=== PATIENT | male | born 1960 | race Caucasian/White ===

== ENCOUNTER 2021-08-16 10:13 | Inpatient (IN) | payer OTHER, SELFPAY ==
[2021-08-16] VITALS (11 sets, daily range): BP systolic 112–131; BP diastolic 57–72; PULSE 60–90; RESP 19–30; TEMP 36.4–36.8; O2SAT 90–100; BMI 25.6
--- NOTE | ~2021-08-16 | XR_ITS ---
EXAMINATION: XR ABDOMEN KUB CLINICAL INDICATION: Abdominal pain. COMPARISON: None TECHNIQUE: AP view of the abdomen. FINDINGS: The bowel gas pattern is normal with no evidence of ileus or obstruction. No unusual soft tissue calcifications are noted. The bones are unremarkable. Partially visualized airspace opacities in the lung bases. XR/XR KUB IMPRESSION: Nonobstructive bowel gas pattern.
--- NOTE | ~2021-08-16 | XR_ITS ---
EXAMINATION: XR CHEST CLINICAL INFORMATION: Fluid overload. Possible pneumonia. COMPARISON: None TECHNIQUE: Portable upright AP view of the chest was obtained. FINDINGS: There are patchy bilateral airspace opacities at the right apex and right infrahilar region. There is bibasilar disc atelectasis. Even distribution vascularity suggesting elevated pulmonary venous pressures. The heart is normal in size. There is no overt effusion. The bony structures are unremarkable. XR/XR chest 1V IMPRESSION: 1. Patchy airspace opacities right apex and right infrahilar region. 2. Bibasilar disc atelectasis. 3. Even distribution pulmonary vascularity suggesting elevated pulmonary venous pressures. Heart size normal.
--- NOTE | ~2021-08-16 | XR_ITS ---
EXAMINATION: XR CHEST CLINICAL INFORMATION: Low sats. COMPARISON: Chest 08/16/2021 TECHNIQUE: Frontal view of the chest was obtained. FINDINGS: The lungs are well-expanded with moderate patchy airspace opacity right middle lobe increased from 08/16/2021 exam. Similar patchy opacities seen in the left lingula, right upper lobe are worse as well. Heart size and pulmonary vascularity is normal. No gross bony abnormality.. XR/XR chest 1V IMPRESSION: Worsening bilateral infiltrates.
[2021-08-16] MEDS: Albuterol/Iprat 2.5/0.5MG 3 ML AMPUL.NEB INHALE ×4 (11:24→23:23)
[2021-08-16] MEDS: Furosemide 20 MG/2 ML VIAL IVPUSH (11:26)
[2021-08-16 11:29] LABS: Hematocrit 32.1 % (42.0-52.0); Hemoglobin 10.8 g/dl (14.0-18.0); Mean Corpuscular HGB Conc 33.6 g/dl (31.0-36.0); Mean Corpuscular Hemoglobin 36.4 pg (27.0-33.0); Mean Corpuscular Volume 108.1 fL (80.0-98.0); Red Blood Count 2.97 X10*6/uL (4.60-5.80); Red Cell Distribution Width 17.2 % (11.0-16.0)
[2021-08-16 11:30] LABS: WBC ABN SCTR FOR CBC 1
[2021-08-16 11:41] LABS: INTERNATIONAL NORM RATIO 1.4 (0.9-1.1); Prothrombin Time 15.7 SEC (9.9-13.0)
[2021-08-16 11:42] LABS: Lactic Acid 1.4 mmol/L (0.5-2.0)
[2021-08-16 11:44] LABS: Partial Thromboplastin Time 29.6 SEC (24.1-38.0)
--- NOTE | 2021-08-16 11:45 | PC.NURSE ---
pt brought to ed via ambulance from [facility] with c/o increased abdominal pain and swelling. pt has history of Cirrhosis with ascites. he also has history of COPD and is on 2L N/C at baseline. Pt placed on 4L N/C by ems due to low sat of 95-96% on 2L. On arrival to the ed pt put on 4L non - rebreather satting at 90-92%. pt noted to be mouth breathing, respiratory therapist at the bedside.
--- NOTE | 2021-08-16 11:46 | ED.GENADULT ---
HPI - General Adult General Chief complaint: Abdominal Pain <Ruddy Saldaña MD - Last Filed: 08/16/21 12:04> Stated complaint: abd pain/ ascites <Ruddy Saldaña MD - Last Filed: 08/16/21 12:04> Time Seen by Provider: 08/16/21 10:46 <Ruddy Saldaña MD - Last Filed: 08/16/21 12:04> Source: patient and EMS <CHINYERE Paulino - Last Filed: 08/16/21 17:06> Mode of arrival: ambulatory <CHINYERE Paulino - Last Filed: 08/16/21 17:06> Limitations: no limitations <CHINYERE Paulino - Last Filed: 08/16/21 17:06> History of Present Illness HPI narrative: Patient with past medical history of COPD, alcoholic liver cirrhosis with ascites, and chronic hypoxia presents to ED for shortness of breath, cough, and increased swelling of abdomen and legs for the past couple days. Patient denies any fever or chills <CHINYERE Paulino - Last Filed: 08/16/21 17:06> Related Data Home medications: Home Medications Medication Instructions Recorded Confirmed albuterol sulfate 90 mcg/actuation 2 puff INHALATION Q4H PRN 08/16/21 08/16/21 aerosol inhaler azithromycin 250 mg tablet 250 mg PO MOWEFR 08/16/21 08/16/21 fluticasone furoate 200 1 inh INHALATION DAILY 08/16/21 08/16/21 mcg-vilanterol 25 mcg/dose inhalation powder (Breo Ellipta) guaifenesin 600 mg tablet, 600 mg PO BID 08/16/21 08/16/21 extended release 12 hr (Mucinex) ipratropium 0.5 mg-albuterol 3 mg 3 ml INHALATION QID 08/16/21 08/16/21 (2.5 mg base)/3 mL nebulization soln morphine 4 mg/mL intravenous 2 mg SUBLINGUAL Q2H PRN 08/16/21 08/16/21 solution multivitamin 1 tab PO DAILY 08/16/21 08/16/21 nadolol 20 mg tablet 40 mg PO DAILY 08/16/21 08/16/21 prednisone 20 mg tablet 20 mg PO DAILY 08/16/21 08/16/21 roflumilast 500 mcg tablet 500 mcg PO DAILY 08/16/21 08/16/21 (Daliresp) sertraline 50 mg tablet 50 mg PO DAILY 08/16/21 08/16/21 thiamine HCl (vitamin B1) 100 mg 100 mg PO DAILY 08/16/21 08/16/21 tablet umeclidinium 62.5 mcg/actuation 1 inh INHALATION DAILY 08/16/21 08/16/21 blister powder for inhalation (Incruse Ellipta) <Ruddy Saldaña MD - Last Filed: 08/16/21 12:04> Allergies/adverse reactions: Allergies Allergy/AdvReac Type Severity Reaction Status Date / Time No Known Allergies Allergy Verified 08/16/21 10:58 <Ruddy Saldaña MD - Last Filed: 08/16/21 12:04> Review of Systems Review of Systems: Yes all other systems are reviewed and are negative <CHINYERE Paulino - Last Filed: 08/16/21 17:06> Constitutional: Constitutional: Reports as per HPI and Reports no additional constitutional complaints <CHINYERE Paulino - Last Filed: 08/16/21 17:06> Eyes: Eyes: Reports as per HPI and Reports no additional eye complaints <CHINYERE Paulino - Last Filed: 08/16/21 17:06> ENT: Reports system reviewed and no additional complaints, except as documented and Reports as per HPI <CHINYERE Paulino - Last Filed: 08/16/21 17:06> Cardiovascular: Cardiovascular: Reports as per HPI, Reports no additional cardiovascular complaints and Reports dyspnea <CHINYERE Paulino Last Filed: 08/16/21 17:06> Respiratory: Respiratory: Reports as per HPI, Reports no additional respiratory complaints, Reports cough and Reports dyspnea <CHINYERE Paulino Last Filed: 08/16/21 17:06> Gastrointestinal: Gastrointestinal: Reports as per HPI and Reports no additional gastrointestinal complaints <CHINYERE Paulino Last Filed: 08/16/21 17:06> Comments: Abdominal distension <CHINYERE Paulino Last Filed: 08/16/21 17:06> Genitourinary: Genitourinary: Reports no additional male genitourinary complaints and Reports as per HPI <CHINYERE Paulino - Last Filed: 08/16/21 17:06> Musculoskeletal: Musculoskeletal: Reports no additional musculoskeletal complaints and Reports as per HPI <CHINYERE Paulino - Last Filed: 08/16/21 17:06> Neurologic: Reports system reviewed and no additional complaints, except as documented and Reports as per HPI <CHINYERE Paulino - Last Filed: 08/16/21 17:06> Psychiatric: Psychiatric: Reports no additional psychiatric complaints and Reports as per HPI <CHINYERE Paulino - Last Filed: 08/16/21 17:06> Endocrine: Endocrine: Reports no additional endocrine complaints and Reports as per HPI <CHINYERE Paulino - Last Filed: 08/16/21 17:06> [facility] Social History Social History: Social History Advance Directives: No Advance Directives Information Provided: No <Ruddy Saldaña MD - Last Filed: 08/16/21 12:04> Physical Exam Vital Signs: Vital Signs: Last Vital Signs Temp 98.0 F 08/16/21 16:00 Pulse 64 08/16/21 16:00 Resp 19 08/16/21 16:00 BP 114/57 L 08/16/21 16:00 Pulse Ox 93 08/16/21 16:00 Oxygen Flow Rate 10 08/16/21 10:24 Body Mass Index 25.6 <Ruddy Saldaña MD - Last Filed: 08/16/21 12:04> Vital Signs: Last Vital Signs Temp 98.0 F 08/16/21 16:00 Pulse 64 08/16/21 16:00 Resp 19 08/16/21 16:00 BP 114/57 L 08/16/21 16:00 Pulse Ox 93 08/16/21 16:00 Oxygen Flow Rate 10 08/16/21 10:24 Body Mass Index 25.6 <CHINYERE Paulino - Last Filed: 08/16/21 17:06> Const: General: cooperative, healthy appearing, comfortable, alert, awake, Physically active and acute distress <CHINYERE Paulino - Last Filed: 08/16/21 17:06> Orientation/consciousness: patient oriented x3 <CHINYERE Paulino - Last Filed: 08/16/21 17:06> HENMT: Head: Yes normal to inspection, Yes No palpable skull fracture present, Yes normocephalic, Yes atraumatic and No abrasion <Phani Alvarado CHINYERE Last Filed: 08/16/21 17:06> Eyes: General: appearance normal, both eyes and all related structures <CHINYERE Paulino Last Filed: 08/16/21 17:06> Neck: Neck: Yes normal visual inspection, Yes full ROM, Yes no lymphadenopathy, Yes no meningeal signs, Yes trachea midline, Yes supple, No anterior neck swelling and No tender <Phanikillian Alvarado CHINYERE Last Filed: 08/16/21 17:06> Chest: Chest palpation & inspection: normal inspection of the chest and normal palpation of entire chest wall <Phani Alvarado CHINYERE Last Filed: 08/16/21 17:06> Resp: Effort & Inspection: normal respiratory effort and able to speak in complete sentences <CHINYERE Paulino Filed: 08/16/21 17:06> Auscultation: rhonchi (Diffuse) and wheezes (Diffuse) <Phani Christiano CHINYERE Filed: 08/16/21 17:06> Cardio: Jugular venous distension: no JVD <CHINYERE Paulino Last Filed: 08/16/21 17:06> Heart sounds: S1 normal heart sound present and S2 normal heart sound present <CHINYERE Paulino Last Filed: 08/16/21 17:06> GI: Inspection: Yes normal to inspection and Yes distended (telangtescia) <Phani Alvarado CHINYERE Last Filed: 08/16/21 17:06> Palpation (GI): Soft to palpation, not firm, nontender, no guarding and not rigid <Phani Alvarado CHINYERE Last Filed: 08/16/21 17:06> : General: No CVA tenderness and Yes no CVA tenderness <Phanikillian Alvarado CHINYERE Valderrama Last Filed: 08/16/21 17:06> Back/Spine/Pelvis: Back: no CVA tenderness, No CVA tenderness and No back tenderness <Phani Christiano CHINYERE Valderrama Last Filed: 08/16/21 17:06> Skin: General skin exam: no rashes or lesions noted and elasticity normal <Phanikillian Alvarado CHINYERE Last Filed: 08/16/21 17:06> Neuro: General: patient oriented x3, no meningeal signs and CN's II-XI intact bilaterally <CHINYERE Paulino - Last Filed: 08/16/21 17:06> Cranial nerves: Yes CN's II-XII intact bilaterally <CHINYERE Paulino - Last Filed: 08/16/21 17:06> Extrem: Other: Bilateral lower extremity swelling with pitting edema <CHINYERE Paulino - Last Filed: 08/16/21 17:06> General: Yes normal to inspection and Yes full ROM <CHINYERE Paulino - Last Filed: 08/16/21 17:06> Psych: Appearance: grossly normal, well kempt and not disheveled <CHINYERE Paulino - Last Filed: 08/16/21 17:06> Course Course Course Narrative: Presentation indicates possible infectious pneumonia cause of hypoxia with patient coughing up yellow phlegm with rhonchi and wheezing but due to abdominal swelling and leg swelling may be fluid overload due to poor liver function or worsening ascites/cirrhosis. Will order Lasix and albuterol inhaler. Bedside ultrasound shows good pocket for potential paracentesis and right side of abdomen. <CHINYERE Paulino - Last Filed: 08/16/21 17:06> Reevaluation(s) Reevaluation #1: Discussed and saw patient with CHINYERE Alvarado, patient with 28 bands, right sided infiltrate and worsening ascites will admit <Ruddy Saldaña MD - Last Filed: 08/16/21 12:04> Time: 12:04 <Ruddy Saldaña MD - Last Filed: 08/16/21 12:04> Reevaluation #2: Patient placed on non-rebreather and air some mask. Chest x-ray shows pneumonia. Patient started on antibiotics. Discussed with Dr. Saldaña who states presently no indication for paracentesis. cause of hypoxia is pneumonia. I agree with the plan. Patient added with Solu-Medrol magnesium. ABG negative for retained CO2. Case discussed with hospitalist who agreed patient should be admitted for COPD exacerbation/pneumonia. <CHINYERE Paulino - Last Filed: 08/16/21 17:06> Time: 14:31 <CHINYERE Paulino Last Filed: 08/16/21 17:06> Medical Decision Making Lab Data Result diagrams: : 08/16/21 11:12 08/16/21 11:12 <Ruddy Saldaña MD - Last Filed: 08/16/21 12:04> Labs: Lab Results 08/16/21 08/16/21 08/16/21 Range/Units 11:11 11:12 11:12 WBC 3.8 L (4.8-10.8) X10*3/uL RBC 2.97 L (4.60-5.80) X10*6/uL Hgb 10.8 L (14.0-18.0) g/dl Hct 32.1 L (42.0-52.0) % MCV 108.1 H (80.0-98.0) fL MCH 36.4 H (27.0-33.0) pg MCHC 33.6 (31.0-36.0) g/dl RDW 17.2 H (11.0-16.0) % Plt Count 99 L (160-400) X10*3/uL MPV 10.9 (9.4-12.4) fL Immature Gran % (Auto) Cancelled Neut % (Auto) Cancelled Lymph % (Auto) Cancelled [place] % (Auto) Cancelled Eos % (Auto) Cancelled Baso % (Auto) Cancelled Lymph # (Auto) Cancelled [place] # (Auto) Cancelled Eos # (Auto) Cancelled Baso # (Auto) Cancelled Abs Immat Gran (auto) Cancelled Absolute Neuts (auto) Cancelled Absolute Nucleated RBC 0.000 (0.0-0.012) X10*3/uL Nucleated RBC % (auto) 0.0 (0.0-0.2) /100WBC Neutrophils % (Manual) 50 (45-73) % Band Neutrophils % 28 H (3-5) % Lymphocytes % (Manual) 10 L (20-40) % Monocytes % (Manual) 10 (2-11) % Eosinophils % (Manual) 1 (0-4) % Metamyelocytes % 1 % Abs Neuts (Manual) 3.0 (2.0-8.3) X10*3/uL Lymphocytes # (Manual) 0.4 L (1.2-4.9) X10*3/uL Monocytes # (Manual) 0.4 (0.1-1.2) X10*3/uL Toxic Vacuolation PRESENT Platelet Estimate NORMAL (NORMAL) Plt Morphology Comment NORMAL RBC Morphology NOTED Macrocytosis 1+ (5-14) /OIF PT 15.7 H (9.9-13.0) SEC INR 1.4 H (0.9-1.1) APTT 29.6 (24.1-38.0) SEC O2 Saturation % ABG pH at Pt Temp (7.35-7.45) ABG pH (Temp Correct) (7.35-7.45) ABG pCO2 at Pt Temp (32-45) mmHg ABG pCO2 (Temp Corrct (32-45) mmHg ABG pO2 at Pt Temp (83-108) mmHg ABG pO2 (Temp Correct (83-108) ABG HCO3 (22-26) mmol/L ABG Base Excess (Actual) mmol/L Sodium 133 L (135-145) mmol/L Potassium 4.8 (3.3-5.1) mmol/L Chloride 97 (96-108) mmol/L Carbon Dioxide 31 H (22-29) mmol/L Anion Gap 10 L (12-20) BUN 22 H (9-16) mg/dL Creatinine 0.56 (0.5-1.4) mg/dL Estim Creat Clear Calc 123.4 Estimated GFR > 60 POC Glucose (60-115) mg/dL Random Glucose 96 (60-115) mg/dL Lactic Acid (0.5-2.0) mmol/L Calcium 9.7 (8.4-10.2) mg/dL Total Bilirubin 2.5 H (0.0-1.0) mg/dL AST 47 H (5-37) U/L ALT 56 H (0-40) U/L Alkaline Phosphatase 162 H (39-117) U/L Troponin I High Sens (<3.5-35.0) ng/L B-Natriuretic Peptide (<100) pg/mL Total Protein 4.9 L (6.5-8.0) g/dL Albumin 2.6 L (3.5-5.0) g/dL Lipase 30 (8-78) U/L Influenza Type A (PCR) (Negative) Influenza Type B (PCR) (Negative) RSV RNA Qual (PCR) (Negative) SARS-CoV-2 RNA (RT-PCR) (Negative) 08/16/21 08/16/21 08/16/21 Range/Units 11:12 11:12 11:44 WBC (4.8-10.8) X10*3/uL RBC (4.60-5.80) X10*6/uL Hgb (14.0-18.0) g/dl Hct (42.0-52.0) % MCV (80.0-98.0) fL MCH (27.0-33.0) pg MCHC (31.0-36.0) g/dl RDW (11.0-16.0) % Plt Count (160-400) X10*3/uL MPV (9.4-12.4) fL Immature Gran % (Auto) Neut % (Auto) Lymph % (Auto) [place] % (Auto) Eos % (Auto) Baso % (Auto) Lymph # (Auto) [place] # (Auto) Eos # (Auto) Baso # (Auto) Abs Immat Gran (auto) Absolute Neuts (auto) Absolute Nucleated RBC (0.0-0.012) X10*3/uL Nucleated RBC % (auto) (0.0-0.2) /100WBC Neutrophils % (Manual) (45-73) % Band Neutrophils % (3-5) % Lymphocytes % (Manual) (20-40) % Monocytes % (Manual) (2-11) % Eosinophils % (Manual) (0-4) % Metamyelocytes % % Abs Neuts (Manual) (2.0-8.3) X10*3/uL Lymphocytes # (Manual) (1.2-4.9) X10*3/uL Monocytes # (Manual) (0.1-1.2) X10*3/uL Toxic Vacuolation Platelet Estimate (NORMAL) Plt Morphology Comment RBC Morphology Macrocytosis /OIF PT (9.9-13.0) SEC INR (0.9-1.1) APTT (24.1-38.0) SEC O2 Saturation % ABG pH at Pt Temp (7.35-7.45) ABG pH (Temp Correct) (7.35-7.45) ABG pCO2 at Pt Temp (32-45) mmHg ABG pCO2 (Temp Corrct (32-45) mmHg ABG pO2 at Pt Temp (83-108) mmHg ABG pO2 (Temp Correct (83-108) ABG HCO3 (22-26) mmol/L ABG Base Excess (Actual) mmol/L Sodium (135-145) mmol/L Potassium (3.3-5.1) mmol/L Chloride (96-108) mmol/L Carbon Dioxide (22-29) mmol/L Anion Gap (12-20) BUN (9-16) mg/dL Creatinine (0.5-1.4) mg/dL Estim Creat Clear Calc Estimated GFR POC Glucose 90 (60-115) mg/dL Random Glucose (60-115) mg/dL Lactic Acid 1.4 (0.5-2.0) mmol/L Calcium (8.4-10.2) mg/dL Total Bilirubin (0.0-1.0) mg/dL AST (5-37) U/L ALT (0-40) U/L Alkaline Phosphatase (39-117) U/L Troponin I High Sens 10.6 (<3.5-35.0) ng/L B-Natriuretic Peptide 59 (<100) pg/mL Total Protein (6.5-8.0) g/dL Albumin (3.5-5.0) g/dL Lipase (8-78) U/L Influenza Type A (PCR) (Negative) Influenza Type B (PCR) (Negative) RSV RNA Qual (PCR) (Negative) SARS-CoV-2 RNA (RT-PCR) (Negative) 08/16/21 08/16/21 Range/Units 11:51 12:04 WBC (4.8-10.8) X10*3/uL RBC (4.60-5.80) X10*6/uL Hgb (14.0-18.0) g/dl Hct (42.0-52.0) % MCV (80.0-98.0) fL MCH (27.0-33.0) pg MCHC (31.0-36.0) g/dl RDW (11.0-16.0) % Plt Count (160-400) X10*3/uL MPV (9.4-12.4) fL Immature Gran % (Auto) Neut % (Auto) Lymph % (Auto) [place] % (Auto) Eos % (Auto) Baso % (Auto) Lymph # (Auto) [place] # (Auto) Eos # (Auto) Baso # (Auto) Abs Immat Gran (auto) Absolute Neuts (auto) Absolute Nucleated RBC (0.0-0.012) X10*3/uL Nucleated RBC % (auto) (0.0-0.2) /100WBC Neutrophils % (Manual) (45-73) % Band Neutrophils % (3-5) % Lymphocytes % (Manual) (20-40) % Monocytes % (Manual) (2-11) % Eosinophils % (Manual) (0-4) % Metamyelocytes % % Abs Neuts (Manual) (2.0-8.3) X10*3/uL Lymphocytes # (Manual) (1.2-4.9) X10*3/uL Monocytes # (Manual) (0.1-1.2) X10*3/uL Toxic Vacuolation Platelet Estimate (NORMAL) Plt Morphology Comment RBC Morphology Macrocytosis /OIF PT (9.9-13.0) SEC INR (0.9-1.1) APTT (24.1-38.0) SEC O2 Saturation 94.0 % ABG pH at Pt Temp 7.53 H (7.35-7.45) ABG pH (Temp Correct) 7.54 H (7.35-7.45) ABG pCO2 at Pt Temp 38 (32-45) mmHg ABG pCO2 (Temp Corrct 38 (32-45) mmHg ABG pO2 at Pt Temp 73 L (83-108) mmHg ABG pO2 (Temp Correct 72 L (83-108) ABG HCO3 33 H (22-26) mmol/L ABG Base Excess (Actual) 10.0 mmol/L Sodium (135-145) mmol/L Potassium (3.3-5.1) mmol/L Chloride (96-108) mmol/L Carbon Dioxide (22-29) mmol/L Anion Gap (12-20) BUN (9-16) mg/dL Creatinine (0.5-1.4) mg/dL Estim Creat Clear Calc Estimated GFR POC Glucose (60-115) mg/dL Random Glucose (60-115) mg/dL Lactic Acid (0.5-2.0) mmol/L Calcium (8.4-10.2) mg/dL Total Bilirubin (0.0-1.0) mg/dL AST (5-37) U/L ALT (0-40) U/L Alkaline Phosphatase (39-117) U/L Troponin I High Sens (<3.5-35.0) ng/L B-Natriuretic Peptide (<100) pg/mL Total Protein (6.5-8.0) g/dL Albumin (3.5-5.0) g/dL Lipase (8-78) U/L Influenza Type A (PCR) NEGATIVE (Negative) Influenza Type B (PCR) NEGATIVE (Negative) RSV RNA Qual (PCR) NEGATIVE (Negative) SARS-CoV-2 RNA (RT-PCR) NEGATIVE (Negative) <Ruddy Saldaña MD - Last Filed: 08/16/21 12:04> Lab Results 08/16/21 08/16/21 08/16/21 Range/Units 11:11 11:12 11:12 WBC 3.8 L (4.8-10.8) X10*3/uL RBC 2.97 L (4.60-5.80) X10*6/uL Hgb 10.8 L (14.0-18.0) g/dl Hct 32.1 L (42.0-52.0) % MCV 108.1 H (80.0-98.0) fL MCH 36.4 H (27.0-33.0) pg MCHC 33.6 (31.0-36.0) g/dl RDW 17.2 H (11.0-16.0) % Plt Count 99 L (160-400) X10*3/uL MPV 10.9 (9.4-12.4) fL Immature Gran % (Auto) Cancelled Neut % (Auto) Cancelled Lymph % (Auto) Cancelled [place] % (Auto) Cancelled Eos % (Auto) Cancelled Baso % (Auto) Cancelled Lymph # (Auto) Cancelled [place] # (Auto) Cancelled Eos # (Auto) Cancelled Baso # (Auto) Cancelled Abs Immat Gran (auto) Cancelled Absolute Neuts (auto) Cancelled Absolute Nucleated RBC 0.000 (0.0-0.012) X10*3/uL Nucleated RBC % (auto) 0.0 (0.0-0.2) /100WBC Neutrophils % (Manual) 50 (45-73) % Band Neutrophils % 28 H (3-5) % Lymphocytes % (Manual) 10 L (20-40) % Monocytes % (Manual) 10 (2-11) % Eosinophils % (Manual) 1 (0-4) % Metamyelocytes % 1 % Abs Neuts (Manual) 3.0 (2.0-8.3) X10*3/uL Lymphocytes # (Manual) 0.4 L (1.2-4.9) X10*3/uL Monocytes # (Manual) 0.4 (0.1-1.2) X10*3/uL Toxic Vacuolation PRESENT Platelet Estimate NORMAL (NORMAL) Plt Morphology Comment NORMAL RBC Morphology NOTED Macrocytosis 1+ (5-14) /OIF PT 15.7 H (9.9-13.0) SEC INR 1.4 H (0.9-1.1) APTT 29.6 (24.1-38.0) SEC O2 Saturation % ABG pH at Pt Temp (7.35-7.45) ABG pH (Temp Correct) (7.35-7.45) ABG pCO2 at Pt Temp (32-45) mmHg ABG pCO2 (Temp Corrct (32-45) mmHg ABG pO2 at Pt Temp (83-108) mmHg ABG pO2 (Temp Correct (83-108) ABG HCO3 (22-26) mmol/L ABG Base Excess (Actual) mmol/L Sodium 133 L (135-145) mmol/L Potassium 4.8 (3.3-5.1) mmol/L Chloride 97 (96-108) mmol/L Carbon Dioxide 31 H (22-29) mmol/L Anion Gap 10 L (12-20) BUN 22 H (9-16) mg/dL Creatinine 0.56 (0.5-1.4) mg/dL Estim Creat Clear Calc 123.4 Estimated GFR > 60 POC Glucose (60-115) mg/dL Random Glucose 96 (60-115) mg/dL Lactic Acid (0.5-2.0) mmol/L Calcium 9.7 (8.4-10.2) mg/dL Total Bilirubin 2.5 H (0.0-1.0) mg/dL AST 47 H (5-37) U/L ALT 56 H (0-40) U/L Alkaline Phosphatase 162 H (39-117) U/L Troponin I High Sens (<3.5-35.0) ng/L B-Natriuretic Peptide (<100) pg/mL Total Protein 4.9 L (6.5-8.0) g/dL Albumin 2.6 L (3.5-5.0) g/dL Lipase 30 (8-78) U/L Influenza Type A (PCR) (Negative) Influenza Type B (PCR) (Negative) RSV RNA Qual (PCR) (Negative) SARS-CoV-2 RNA (RT-PCR) (Negative) 08/16/21 08/16/21 08/16/21 Range/Units 11:12 11:12 11:44 WBC (4.8-10.8) X10*3/uL RBC (4.60-5.80) X10*6/uL Hgb (14.0-18.0) g/dl Hct (42.0-52.0) % MCV (80.0-98.0) fL MCH (27.0-33.0) pg MCHC (31.0-36.0) g/dl RDW (11.0-16.0) % Plt Count (160-400) X10*3/uL MPV (9.4-12.4) fL Immature Gran % (Auto) Neut % (Auto) Lymph % (Auto) [place] % (Auto) Eos % (Auto) Baso % (Auto) Lymph # (Auto) [place] # (Auto) Eos # (Auto) Baso # (Auto) Abs Immat Gran (auto) Absolute Neuts (auto) Absolute Nucleated RBC (0.0-0.012) X10*3/uL Nucleated RBC % (auto) (0.0-0.2) /100WBC Neutrophils % (Manual) (45-73) % Band Neutrophils % (3-5) % Lymphocytes % (Manual) (20-40) % Monocytes % (Manual) (2-11) % Eosinophils % (Manual) (0-4) % Metamyelocytes % % Abs Neuts (Manual) (2.0-8.3) X10*3/uL Lymphocytes # (Manual) (1.2-4.9) X10*3/uL Monocytes # (Manual) (0.1-1.2) X10*3/uL Toxic Vacuolation Platelet Estimate (NORMAL) Plt Morphology Comment RBC Morphology Macrocytosis /OIF PT (9.9-13.0) SEC INR (0.9-1.1) APTT (24.1-38.0) SEC O2 Saturation % ABG pH at Pt Temp (7.35-7.45) ABG pH (Temp Correct) (7.35-7.45) ABG pCO2 at Pt Temp (32-45) mmHg ABG pCO2 (Temp Corrct (32-45) mmHg ABG pO2 at Pt Temp (83-108) mmHg ABG pO2 (Temp Correct (83-108) ABG HCO3 (22-26) mmol/L ABG Base Excess (Actual) mmol/L Sodium (135-145) mmol/L Potassium (3.3-5.1) mmol/L Chloride (96-108) mmol/L Carbon Dioxide (22-29) mmol/L Anion Gap (12-20) BUN (9-16) mg/dL Creatinine (0.5-1.4) mg/dL Estim Creat Clear Calc Estimated GFR POC Glucose 90 (60-115) mg/dL Random Glucose (60-115) mg/dL Lactic Acid 1.4 (0.5-2.0) mmol/L Calcium (8.4-10.2) mg/dL Total Bilirubin (0.0-1.0) mg/dL AST (5-37) U/L ALT (0-40) U/L Alkaline Phosphatase (39-117) U/L Troponin I High Sens 10.6 (<3.5-35.0) ng/L B-Natriuretic Peptide 59 (<100) pg/mL Total Protein (6.5-8.0) g/dL Albumin (3.5-5.0) g/dL Lipase (8-78) U/L Influenza Type A (PCR) (Negative) Influenza Type B (PCR) (Negative) RSV RNA Qual (PCR) (Negative) SARS-CoV-2 RNA (RT-PCR) (Negative) 08/16/21 08/16/21 Range/Units 11:51 12:04 WBC (4.8-10.8) X10*3/uL RBC (4.60-5.80) X10*6/uL Hgb (14.0-18.0) g/dl Hct (42.0-52.0) % MCV (80.0-98.0) fL MCH (27.0-33.0) pg MCHC (31.0-36.0) g/dl RDW (11.0-16.0) % Plt Count (160-400) X10*3/uL MPV (9.4-12.4) fL Immature Gran % (Auto) Neut % (Auto) Lymph % (Auto) [place] % (Auto) Eos % (Auto) Baso % (Auto) Lymph # (Auto) [place] # (Auto) Eos # (Auto) Baso # (Auto) Abs Immat Gran (auto) Absolute Neuts (auto) Absolute Nucleated RBC (0.0-0.012) X10*3/uL Nucleated RBC % (auto) (0.0-0.2) /100WBC Neutrophils % (Manual) (45-73) % Band Neutrophils % (3-5) % Lymphocytes % (Manual) (20-40) % Monocytes % (Manual) (2-11) % Eosinophils % (Manual) (0-4) % Metamyelocytes % % Abs Neuts (Manual) (2.0-8.3) X10*3/uL Lymphocytes # (Manual) (1.2-4.9) X10*3/uL Monocytes # (Manual) (0.1-1.2) X10*3/uL Toxic Vacuolation Platelet Estimate (NORMAL) Plt Morphology Comment RBC Morphology Macrocytosis /OIF PT (9.9-13.0) SEC INR (0.9-1.1) APTT (24.1-38.0) SEC O2 Saturation 94.0 % ABG pH at Pt Temp 7.53 H (7.35-7.45) ABG pH (Temp Correct) 7.54 H (7.35-7.45) ABG pCO2 at Pt Temp 38 (32-45) mmHg ABG pCO2 (Temp Corrct 38 (32-45) mmHg ABG pO2 at Pt Temp 73 L (83-108) mmHg ABG pO2 (Temp Correct 72 L (83-108) ABG HCO3 33 H (22-26) mmol/L ABG Base Excess (Actual) 10.0 mmol/L Sodium (135-145) mmol/L Potassium (3.3-5.1) mmol/L Chloride (96-108) mmol/L Carbon Dioxide (22-29) mmol/L Anion Gap (12-20) BUN (9-16) mg/dL Creatinine (0.5-1.4) mg/dL Estim Creat Clear Calc Estimated GFR POC Glucose (60-115) mg/dL Random Glucose (60-115) mg/dL Lactic Acid (0.5-2.0) mmol/L Calcium (8.4-10.2) mg/dL Total Bilirubin (0.0-1.0) mg/dL AST (5-37) U/L ALT (0-40) U/L Alkaline Phosphatase (39-117) U/L Troponin I High Sens (<3.5-35.0) ng/L B-Natriuretic Peptide (<100) pg/mL Total Protein (6.5-8.0) g/dL Albumin (3.5-5.0) g/dL Lipase (8-78) U/L Influenza Type A (PCR) NEGATIVE (Negative) Influenza Type B (PCR) NEGATIVE (Negative) RSV RNA Qual (PCR) NEGATIVE (Negative) SARS-CoV-2 RNA (RT-PCR) NEGATIVE (Negative) <CHINYERE Paulino - Last Filed: 08/16/21 17:06> ECG Data Interpretation: Sinus rhythm with premature atrial complexes. Ventricular rate 64. Parents 156. QRS 76. QTC 406. Negative <CHINYERE Paulino - Last Filed: 08/16/21 17:06> Critical Care Time Critical Care Time Critical Care Time: Yes <CHINYERE Paulino Last Filed: 08/16/21 17:06> Total Critical Care Time: 60 <CHINYERE Paulino Last Filed: 08/16/21 17:06> Attestation: Patient hypoxic. Patient placed on vent T-max and then non-rebreather. ABG was ordered. Patient started on antibiotics after chest x-ray shows pneumonia. <CHINYERE Paulino Last Filed: 08/16/21 17:06> Discharge Plan Discharge Clinical Impression: COPD exacerbation, Pneumonia <Ruddy Saldaña MD - Last Filed: 08/16/21 12:04> Patient Disposition: Admitted As Inpatient <Ruddy Saldaña MD - Last Filed: 08/16/21 12:04>
[2021-08-16 11:48] LABS: B Type Natriuretic Peptide 59 pg/mL (<100); Troponin-I High Sensitivity 10.6 ng/L (<3.5-35.0)
[2021-08-16 11:50] LABS: Alanine Aminotransferase 56 U/L (0-40); Albumin Level 2.6 g/dL (3.5-5.0); Alkaline Phosphatase 162 U/L (39-117); Anion Gap 10 (12-20); Aspartate Amino Transferase 47 U/L (5-37); Bilirubin Total 2.5 mg/dL (0.0-1.0); Blood Urea Nitrogen 22 mg/dL (9-16); Calcium 9.7 mg/dL (8.4-10.2); Carbon Dioxide 31 mmol/L (22-29); Chloride 97 mmol/L (96-108); Creatinine Clr Calc Pharmacy 123.4; Estimated Glomerular Filt Rate > 60; Glucose Random 96 mg/dL (60-115); Lipase 30 U/L (8-78); Potassium 4.8 mmol/L (3.3-5.1); Sodium 133 mmol/L (135-145); Total Protein 4.9 g/dL (6.5-8.0)
--- NOTE | 2021-08-16 11:56 | ECG_ITS ---
Test Reason : ABD PAIN SOB Blood Pressure : / mmHG Vent. Rate : 064 BPM Atrial Rate : 064 BPM P-R Int : 166 ms QRS Dur : 076 ms QT Int : 394 ms P-R-T Axes : 051 -34 048 degrees QTc Int : 406 ms Sinus rhythm Left axis deviation Abnormal ECG No previous ECGs available Referred By: Phani Alvarado Electronically Signed By:KLAUS MOTNAÑO MD
[2021-08-16 11:57] LABS: Band Neutrophils Percent 28 % (3-5); Eosinophils Percent Manual 1 % (0-4); Lymphocytes Percent Manual 10 % (20-40); Metamyelocytes Percent 1 %; Monocytes Percent Manual 10 % (2-11); Neutrophils Percent Manual 50 % (45-73)
[2021-08-16 11:58] LABS: Macrocytosis 1+ (5-14) /OIF; Platelet Estimate NORMAL (NORMAL); RBC Morphology NOTED; Toxic Vacuolation PRESENT
[2021-08-16 11:59] LABS: Platelet Morphology Comment NORMAL
[2021-08-16 12:11] LABS: ABG HCO3 33 mmol/L (22-26); ABG pCO2 38 mmHg (32-45); ABG pCO2 TC 38 mmHg (32-45); ABG pH 7.53 (7.35-7.45); ABG pH TC 7.54 (7.35-7.45); ABG pO2 73 mmHg (83-108); ABG pO2 TC 72 (83-108)
[2021-08-16 12:14] LABS: Glucose, Whole Blood 90 mg/dL (60-115)
[2021-08-16] MEDS: Albuterol Sulfate (0.083%) 2.5 MG/3 ML VIAL.NEB 5 MG INHALE (12:30)
[2021-08-16] MEDS: methylPREDNISolone Sod Succ 125 MG/2 ML VIAL IVPUSH (12:32)
[2021-08-16 12:46] LABS: Influenza A PCR NEGATIVE (Negative); Influenza B PCR NEGATIVE (Negative); Resp Syncy Virus RNA Qual PCR NEGATIVE (Negative); SARS COV2 PCR INHOUSE NEGATIVE (Negative)
[2021-08-16] MEDS: Magnesium Sulfate/H2O 2 GM/50 ML PIGGYBACK IV (12:54)
[2021-08-16] MEDS: Azithromycin 500 MG in 0.9 % Sodium Chloride 250 ML 125 MG IV (12:55)
--- NOTE | 2021-08-16 13:52 | PHA.MEDREC ---
Pharmacy Consult ? Medication Reconciliation Pharmacy has completed the medication reconciliation. Patient came from [facility] with a medication list. Call facility to confirm morhpine dose. Morphine dose is Morphine 20 mg/5 mL solution 0.5 mL (2 mg). The medication list says 0.5 mL (10 mg), however Amy nurse confirm he is getting 0.5 mL and not 10 mg. Marina Santoro, CaroleeD
[2021-08-16 14:36] LABS: Lymphocytes Absolute Manual 0.4 X10*3/uL (1.2-4.9); Mean Platelet Volume 10.9 fL (9.4-12.4); Monocytes Absolute Manual 0.4 X10*3/uL (0.1-1.2); Platelet Count 99 X10*3/uL (160-400); White Blood Count 3.8 X10*3/uL (4.8-10.8)
[2021-08-16] MEDS: Enoxaparin Sodium 40 MG/0.4 ML SYRINGE SUBCUT (15:32)
--- NOTE | 2021-08-16 17:38 | P.HPHOSP_ITS ---
History of Present Illness Date of Service: 08/16/21 Chief Complaint: Shortness of breath 60 year old male with cirrhosis of liver, copd on O2 via concentrator at home here with increasing sob over the last several days, not responding to inhalers, he has also noted swelling in both legs and increased ascietes, no fever or chills, normal WBC, CXR Patchy airspace opacities right apex and right infrahil ar region..He has no fever, has some cough, no sputum production. BNP is normal. Review of Systems Review of Systems: Gen: no fever Resp: +sob, + cough CV: no chest, no HOWE, + leg edema GI: No n/v, no abd pain Neuro: No confusion [facility] Medical History (Updated 08/16/21 @ 17:53 by Reid Martinez MD) Ascites Chronic respiratory failure Cirrhosis of liver COPD exacerbation Pertinent family history: he reports no family history of chronic lung disease Social History Unable to assess alcohol history related to: Unable to respond Patient Tobacco Use Status: Former Tobacco user Advance Directives: No Advance Directives Information Provided: No Meds Allergies Allergy/AdvReac Type Severity Reaction Status Date / Time No Known Allergies Allergy Verified 08/16/21 10:58 Active Medications: Current Medications Albuterol/Ipratropium (Albuterol/Iprat 2.5/0.5mg 3 Ml Ampul.Neb) 3 ml INHALE RQ4H WHILE AWAKE [facility] Last Admin: 08/16/21 15:06 Dose: Not Given Documented by: Albuterol/Ipratropium (Albuterol/Iprat 2.5/0.5mg 3 Ml Ampul.Neb) 3 ml INHALE Q2H PRN PRN Reason: Shortness of Breath Enoxaparin Sodium (Enoxaparin Sodium 40 Mg/0.4 Ml Syringe) 40 mg SUBCUT Q24H [facility] Last Admin: 08/16/21 15:32 Dose: 40 mg Documented by: Methylprednisolone Sodium Succinate (Methylprednisolone Sod Succ 40 Mg/Ml Vial) 40 mg IVPUSH Q8H [facility] Pharmacy Consult (Consult Rx Perform Med Rec) 1 each MISCELLANE ONCE PRN PRN Reason: Consult order Sodium Chloride (0.9 % Sodium Chloride Flush 3 Ml Syringe) 3 ml IVFLUSH QSHIFT [facility] Home Medications Medication Instructions Recorded Confirmed Last Taken Type albuterol sulfate 90 mcg/actuation 2 puff INHALATION Q4H PRN 08/16/21 08/16/21 08/11/21 History aerosol inhaler azithromycin 250 mg tablet 250 mg PO MOWEFR 08/16/21 08/16/21 08/16/21 History fluticasone furoate 200 1 inh INHALATION DAILY 08/16/21 08/16/21 08/16/21 History mcg-vilanterol 25 mcg/dose inhalation powder (Breo Ellipta) guaifenesin 600 mg tablet, 600 mg PO BID 08/16/21 08/16/21 08/16/21 History extended release 12 hr (Mucinex) ipratropium 0.5 mg-albuterol 3 mg 3 ml INHALATION QID 08/16/21 08/16/21 08/16/21 History (2.5 mg base)/3 mL nebulization soln morphine 4 mg/mL intravenous 2 mg SUBLINGUAL Q2H PRN 08/16/21 08/16/21 08/16/21 History solution multivitamin 1 tab PO DAILY 08/16/21 08/16/21 08/16/21 History nadolol 20 mg tablet 40 mg PO DAILY 08/16/21 08/16/21 08/16/21 History prednisone 20 mg tablet 20 mg PO DAILY 08/16/21 08/16/21 08/15/21 History roflumilast 500 mcg tablet 500 mcg PO DAILY 08/16/21 08/16/21 08/16/21 History (Daliresp) sertraline 50 mg tablet 50 mg PO DAILY 08/16/21 08/16/21 08/16/21 History thiamine HCl (vitamin B1) 100 mg 100 mg PO DAILY 08/16/21 08/16/21 08/16/21 History tablet umeclidinium 62.5 mcg/actuation 1 inh INHALATION DAILY 08/16/21 08/16/21 08/16/21 History blister powder for inhalation (Incruse Ellipta) Physical Exam Vital Signs and Narrative: Vital Signs: Last Vital Signs Temp 98.0 F 08/16/21 16:00 Pulse 64 08/16/21 16:00 Resp 19 08/16/21 16:00 BP 114/57 L 08/16/21 16:00 Pulse Ox 93 08/16/21 16:00 Oxygen Flow Rate 10 08/16/21 10:24 Body Mass Index 25.6 Results Labs CBC and Chem 7: 08/16/21 11:12 08/16/21 11:12 Labs: Laboratory Results - last 24 hr 08/16/21 08/16/21 08/16/21 11:11 11:12 11:12 MCV 108.1 H MCH 36.4 H MCHC 33.6 RDW 17.2 H Plt Count 99 L MPV 10.9 Immature Gran % (Auto) Cancelled Neut % (Auto) Cancelled Lymph % (Auto) Cancelled Bowie % (Auto) Cancelled Eos % (Auto) Cancelled Baso % (Auto) Cancelled Lymph # (Auto) Cancelled Bowie # (Auto) Cancelled Eos # (Auto) Cancelled Baso # (Auto) Cancelled Abs Immat Gran (auto) Cancelled Absolute Neuts (auto) Cancelled Absolute Nucleated RBC 0.000 Nucleated RBC % (auto) 0.0 Neutrophils % (Manual) 50 Band Neutrophils % 28 H Lymphocytes % (Manual) 10 L Monocytes % (Manual) 10 Eosinophils % (Manual) 1 Metamyelocytes % 1 Abs Neuts (Manual) 3.0 Lymphocytes # (Manual) 0.4 L Monocytes # (Manual) 0.4 Toxic Vacuolation PRESENT Platelet Estimate NORMAL Plt Morphology Comment NORMAL RBC Morphology NOTED Macrocytosis 1+ (5-14) PT 15.7 H INR 1.4 H APTT 29.6 O2 Saturation ABG pH at Pt Temp ABG pH (Temp Correct) ABG pCO2 at Pt Temp ABG pCO2 (Temp Corrct ABG pO2 at Pt Temp ABG pO2 (Temp Correct ABG HCO3 ABG Base Excess (Actual) Anion Gap 10 L Estim Creat Clear Calc 123.4 Estimated GFR > 60 POC Glucose Random Glucose 96 Lactic Acid Calcium 9.7 Total Bilirubin 2.5 H AST 47 H ALT 56 H Alkaline Phosphatase 162 H Troponin I High Sens B-Natriuretic Peptide Total Protein 4.9 L Albumin 2.6 L Lipase 30 Influenza Type A (PCR) Influenza Type B (PCR) RSV RNA Qual (PCR) SARS-CoV-2 RNA (RT-PCR) 08/16/21 08/16/21 08/16/21 11:12 11:12 11:44 MCV MCH MCHC RDW Plt Count MPV Immature Gran % (Auto) Neut % (Auto) Lymph % (Auto) Bowie % (Auto) Eos % (Auto) Baso % (Auto) Lymph # (Auto) Bowie # (Auto) Eos # (Auto) Baso # (Auto) Abs Immat Gran (auto) Absolute Neuts (auto) Absolute Nucleated RBC Nucleated RBC % (auto) Neutrophils % (Manual) Band Neutrophils % Lymphocytes % (Manual) Monocytes % (Manual) Eosinophils % (Manual) Metamyelocytes % Abs Neuts (Manual) Lymphocytes # (Manual) Monocytes # (Manual) Toxic Vacuolation Platelet Estimate Plt Morphology Comment RBC Morphology Macrocytosis PT INR APTT O2 Saturation ABG pH at Pt Temp ABG pH (Temp Correct) ABG pCO2 at Pt Temp ABG pCO2 (Temp Corrct ABG pO2 at Pt Temp ABG pO2 (Temp Correct ABG HCO3 ABG Base Excess (Actual) Anion Gap Estim Creat Clear Calc Estimated GFR POC Glucose 90 Random Glucose Lactic Acid 1.4 Calcium Total Bilirubin AST ALT Alkaline Phosphatase Troponin I High Sens 10.6 B-Natriuretic Peptide 59 Total Protein Albumin Lipase Influenza Type A (PCR) Influenza Type B (PCR) RSV RNA Qual (PCR) SARS-CoV-2 RNA (RT-PCR) 08/16/21 08/16/21 11:51 12:04 MCV MCH MCHC RDW Plt Count MPV Immature Gran % (Auto) Neut % (Auto) Lymph % (Auto) Bowie % (Auto) Eos % (Auto) Baso % (Auto) Lymph # (Auto) Bowie # (Auto) Eos # (Auto) Baso # (Auto) Abs Immat Gran (auto) Absolute Neuts (auto) Absolute Nucleated RBC Nucleated RBC % (auto) Neutrophils % (Manual) Band Neutrophils % Lymphocytes % (Manual) Monocytes % (Manual) Eosinophils % (Manual) Metamyelocytes % Abs Neuts (Manual) Lymphocytes # (Manual) Monocytes # (Manual) Toxic Vacuolation Platelet Estimate Plt Morphology Comment RBC Morphology Macrocytosis PT INR APTT O2 Saturation 94.0 ABG pH at Pt Temp 7.53 H ABG pH (Temp Correct) 7.54 H ABG pCO2 at Pt Temp 38 ABG pCO2 (Temp Corrct 38 ABG pO2 at Pt Temp 73 L ABG pO2 (Temp Correct 72 L ABG HCO3 33 H ABG Base Excess (Actual) 10.0 Anion Gap Estim Creat Clear Calc Estimated GFR POC Glucose Random Glucose Lactic Acid Calcium Total Bilirubin AST ALT Alkaline Phosphatase Troponin I High Sens B-Natriuretic Peptide Total Protein Albumin Lipase Influenza Type A (PCR) NEGATIVE Influenza Type B (PCR) NEGATIVE RSV RNA Qual (PCR) NEGATIVE SARS-CoV-2 RNA (RT-PCR) NEGATIVE Imaging Radiologist's Impressions: Impressions Chest X-Ray 08/16/21 10:58 IMPRESSION: 1. Patchy airspace opacities right apex and right infrahilar region. 2. Bibasilar disc atelectasis. 3. Even distribution pulmonary vascularity suggesting elevated pulmonary venous pressures. Heart size normal. Assessment and Plan (1) COPD exacerbation: Status: Acute 60 year old male with COPD on home O2, here with acute exacerbation of COPD and suspected PN #COPD exacerbation * Continue O2 * IV steroid * cough medications #PNA * Ceftriaxone +Azithro #Leg edema--likely from Cirrhosis, normal BNP * Lasix #Mild HypOnatremia--d/t cirrhosis, observe Quality Stroke Does the patient have a stroke diagnosis?: No VTE Prior VTE?: No VTE Risk Level:: Medical - moderate - high VTE Device Contraindication: Treatment Not Indicated VTE Drug Contraindication: N/A - Med Ordered
--- NOTE | 2021-08-16 18:20 | PC.NURSE ---
pt alert and oriented, vss. pt denies pain. o2 sat 95-96%. pt given supper, assisted to commode. pt denies headache/dizziness. Pt assigned to room 361, report given to TATA Burton. pt transferred to floor by alternative dispute resolution mediator.
[2021-08-16] MEDS: 0.9 % Sodium Chloride Flush 3 ML SYRINGE IVFLUSH (20:42)
[2021-08-16] MEDS: Morphine Sulfate 2 MG/ML CARTRIDGE 1 MG IVPUSH (21:11)
[2021-08-17] MEDS: Morphine Sulfate 2 MG/ML CARTRIDGE 1 MG IVPUSH (00:56)
[2021-08-17] MEDS: methylPREDNISolone Sod Succ 40 MG/ML VIAL IVPUSH (04:51)
[2021-08-17] MEDS: Albuterol/Iprat 2.5/0.5MG 3 ML AMPUL.NEB INHALE (07:22)
[2021-08-17 07:24] VITALS: PULSE 68
[2021-08-17] MEDS: 0.9 % Sodium Chloride Flush 3 ML SYRINGE IVFLUSH (07:38)
[2021-08-17 08:00] VITALS: BP 70/35; PULSE 97; RESP 20; TEMP 36.1
[2021-08-17 08:15] VITALS: BP 54/30; PULSE 55; RESP 24; O2SAT 69
[2021-08-17 08:30] LABS: ABG Base Excess 0.3 mmol/L; ABG HCO3 31 mmol/L (22-26); ABG pCO2 87 mmHg (32-45); ABG pCO2 TC 82 mmHg (32-45); ABG pH 7.16 (7.35-7.45); ABG pH TC 7.18 (7.35-7.45); ABG pO2 39 mmHg (83-108); ABG pO2 TC 36 (83-108)
[2021-08-17 08:40] LABS: Hemoglobin 11.4 g/dl (14.0-18.0); PLT CLUMP 1; Red Cell Distribution Width 16.6 % (11.0-16.0)
[2021-08-17 08:42] LABS: Hematocrit 35.9 % (42.0-52.0); Mean Corpuscular HGB Conc 31.8 g/dl (31.0-36.0); Mean Corpuscular Hemoglobin 35.8 pg (27.0-33.0); Mean Platelet Volume 11.8 fL (9.4-12.4); Red Blood Count 3.18 X10*6/uL (4.60-5.80)
[2021-08-17 08:46] VITALS: PULSE 103; RESP 26; O2SAT 72
[2021-08-17 08:59] LABS: Mean Corpuscular Volume 112.9 fL (80.0-98.0); Platelet Count 80 X10*3/uL (160-400); WBC ABN SCTR FOR CBC 1
[2021-08-17 09:04] LABS: Anion Gap 16 (12-20); Blood Urea Nitrogen 31 mg/dL (9-16); Calcium 9.6 mg/dL (8.4-10.2); Carbon Dioxide 26 mmol/L (22-29); Chloride 100 mmol/L (96-108); Creatinine Clr Calc Pharmacy 89.7; Estimated Glomerular Filt Rate > 60; Potassium 4.2 mmol/L (3.3-5.1); Sodium 138 mmol/L (135-145)
[2021-08-17 09:06] LABS: Glucose Random 43 mg/dL (60-115)
[2021-08-17] MEDS: Morphine Sulfate 4 MG/ML CARTRIDGE IVPUSH (09:24)
[2021-08-17 09:50] LABS: Atypical Lymphs Percent Manual 2 % (0-6); Lymphocytes Absolute Manual 0.6 X10*3/uL (1.2-4.9); Lymphocytes Percent Manual 64 % (20-40); Metamyelocytes Percent 1 %; Monocytes Absolute Manual 0.3 X10*3/uL (0.1-1.2); Monocytes Percent Manual 30 % (2-11); Myelocytes Percent 1 %; Neutrophils Percent Manual 2 % (45-73)
[2021-08-17 10:09] LABS: Acanthocytes 2+ (3-5) /OIF; RBC Morphology NOTED
[2021-08-17 10:10] LABS: Large Platelet PRESENT; Platelet Estimate DECREASED (NORMAL); Platelet Morphology Comment NOTED; Schistocytes 1+ (0-2) /OIF; Tear Drop Cells 1+ (0-2) /OIF
--- NOTE | 2021-08-17 11:14 | PC.NURSE ---
0815: Pt found to be unresponsive, low o2 sat 31 on 100% NRB mask. Rapid Response called overhead. Superviser, Hospitalists, RT [facility] RN responded. 0820 P 95 RR 24 BP 70/65 o2 sat 69%. Pt continues to be unresponsive with even sternal rub. RT placed pt on bipap, labs drawn, CXR ordered, ABGS drawn. IVF NS wide open hung. repeat manual BP 84/43. 40mg IV lasix given per md order. Inc urine. remains unresponsive. Dr Ngo notified daughter Caren, daughter will be coming in to see pt. repeat BP manual 54/36 HR 55 RR 24. Bipap continued, pt washed. 924_ RT in to remove pt from bipap for comfort per , MS 4 mg IV given for comfort. Daughter at bedside. 0945- Pt daughter to desk as she thinks pt has . This RN auscultated and heard no heartbeat, no respirations. Dr Ngo notified and pt pronounced at 0950. Superviser aware, DEVYN notified. Daughter took pt watch, bracelet and cell phone home
--- NOTE | 2021-08-17 11:42 | P.DN_ITS ---
Discharge Sum: Prov Provider Primary care physician: Isai Hitchcock MD Discharge Sum: Diag PCOD Cause of : Respiratory failure with hypoxia and hypercapnia Contributing Factors (1) COPD exacerbation: Contributing factors: COPD Pneumonia liver cirrhosis Discharge Sum: Summary Date and Time Date of admission: 08/16/21 13:46 Date of : 08/17/21 Time of : 09:50 Summary Details: this was a 60-year-old male with past medical history of liver cirrhosis, COPD on baseline O2 at home who presented to the hospital with shortness of breath was found to have pneumonia as well as COPD exacerbation. Patient was being treated for COPD exacerbation with Solu-Medrol, breathing treatments, was well as oxygen supplements, patient was also on IV antibiotics ceftriaxone and azithromycin. a rapid respnse was called on this patient around 8:00 a.m. this morning for being unresponsive and having low O2 sats. On my arrival at bedside patient's O2 was 35% on 15 L of non-rebreather. Patient unresponsive, not responding to sternal rubs. ABG obtained showed hypercapnic respiratory acidosis with CO2 of 83 and pH of 7.1. his blood pressure was also found to be 70/35. patient was DNR DNI. Placed on BiPAP With no improvement of his oxygenation. chest x-ray shows worsening of his bilateral infiltrates. Discussed case with his daughter Carole who wanted the patient to be comfortable. Patient was removed off the BiPAP, 4 mg of IV morphine for respiratory distress. Patient at 9:50 a.m. this a.m. Secondary to hypercapnic hypoxic respiratory failure in the setting of COPD exacerbation and pneumonia. Additional Data Family: at bedside Attending physician: Austen Ngo MD passport application examiner notified?: Yes Organ bank notified?: Yes
[2021-08-17 12:33] LABS: White Blood Count 0.9 X10*3/uL (4.8-10.8)
[2021-08-17 12:34] LABS: Band Neutrophils Percent 0 % (3-5)
--- NOTE | 2021-09-08 05:31 | P.CDIR_ITS ---
Documented by User: Geeta Arcos CCS, CDIS 09/08/21 05:38 Retrospective Query PHYSICIAN'S DOCUMENTATION REQUEST Date of Query: 09/08/21531 Patient Name: Nelson Fernando Admit Date: 08/16/21 Dear Doctor, A review of the medical record indicates additional documentation may be needed. Please review below and update the documentation accordingly. Risk Factors/Clinical Indicators/Treatments Ed: SOB, dyspnea, cough possible infectious pneumona, has COPD with history of smoking. H&P: 08/16 - Hypoxia, yellow phlegm w rhonchi and wheezes placed on non-breather and air mask. ABG's ordered, CXR shows pneumonia. PMH: Chronic respiratory failure on home oxygen. note: respiratory failure with hypoxia and hypercapnia, copd exacerbation and pneumonia. Low O2 sats 35% on 15 L of non-breather unresponsive, BIPAP with no improvement. If possible, please further clarify the type and acuity of respiratory failure: Type: Acute on chronic hypoxic and hypercapnia respiratory failure * Respiratory failure with hypoxia and hypercapnia * Other (please specify) * Unable to determine Acuity: * Acute * Chronic * Acute on chronic * Unable to determine Use of terms such as suspected, likely, concern for, or probable (associated with a specific diagnosis that is being evaluated, monitored, or treated as if it exists) are acceptable and can be coded in the inpatient setting, when documented at the time of discharge. Thank you, Geeta Arcos [facility], CDIS Extension: [id number] Please use your independent medical judgment in providing your response. THIS QUERY IS PART OF THE PERMANENT MEDICAL RECORD Documented by User: Austen Ngo MD 09/09/21 18:54 Retrospective Query Provider Response: Other (Acute on chronic hypoxic and hypercapnic respiratory failure)
--- NOTE | 2021-09-08 05:38 | P.CDIR_ITS ---
Documented by User: Geeta Arcos CCS, CDIS 09/08/21 05:43 Retrospective Query PHYSICIAN'S DOCUMENTATION REQUEST Date of Query: 09/08/21 0539 Patient Name: Nelson Fernando Admit Date: 08/16/21 Dear Doctor, A review of the medical record indicates additional documentation may be needed. Please review below and update the documentation accordingly. Risk Factors/Clinical Indicators/Treatments Notes 08/16 - patients O2 sats 35% BP dropped to 70/35 on 15 L non-breather not responding to sternal rub, placed on BIPAP with no improvement pulse ox 69 L RR 30 HR 55. Respiratory failure with hypoxia and hypercapnia, COPD exacerbation and pneumonia. Based on the above, could you clarify in the Progress Notes which, if any of the following, best reflects the patient's level of consciousness? * Shock * Unresponsiveness * Other (please specify) * Unable to determine Use of terms such as suspected, likely, concern for, or probable (associated with a specific diagnosis that is being evaluated, monitored, or treated as if it exists) are acceptable and can be coded in the inpatient setting, when documented at the time of discharge. Thank you, Geeta Arcos [facility], CDIS Extension: [id number] Please use your independent medical judgment in providing your response. THIS QUERY IS PART OF THE PERMANENT MEDICAL RECORD Documented by User: Austen Ngo MD 09/09/21 18:53 Retrospective Query Provider Response: Other (Pt was both unresponsive and in shock given his BP at the time of rapid response )
--- NOTE | 2021-09-08 05:44 | P.CDIR_ITS ---
Documented by User: Geeta Arcos CCS, CDIS 09/08/21 05:48 Retrospective Query PHYSICIAN'S DOCUMENTATION REQUEST Date of Query: 09/08/21 0544 Patient Name: Nelson Fernando Admit Date: 08/16/21 Dear Doctor, A review of the medical record indicates additional documentation may be needed. Please review below and update the documentation accordingly. Risk Factors/Clinical Indicators/Treatments Patient unresponsive, not responding to sternal rub. RT: continued to be unresponsive placed on BIPAP, labs drawn, CXR ordered, BP dropped 54/36 with HR 55 RR 24 still unresponsive. Comfort measures initiate d. note 08/16 - respiratory failure with hypoxia and hypercapnia, COPD exacerbation and pneumonia. Chronic respiratory failure on home oxygen. Based on the above, could you clarify in the Progress Notes which, if any of the following, best reflects the patient's level of consciousness? * Unconscious/unresponsiveness * Coma * Other (please specify) * Unable to determine Use of terms such as suspected, likely, concern for, or probable (associated with a specific diagnosis that is being evaluated, monitored, or treated as if it exists) are acceptable and can be coded in the inpatient setting, when documented at the time of discharge. Thank you, Geeta Arcos CCs, CDIS Extension: [id number] Please use your independent medical judgment in providing your response. THIS QUERY IS PART OF THE PERMANENT MEDICAL RECORD Documented by User: Austen Ngo MD 09/09/21 18:52 Retrospective Query Provider Response: Other (Pt was unresponsive/unconscious on my exam )
== END 2021-08-17 13:44 | disposition expired | DRG 140 ==
LOC: HO.ED 10:46 → HO.EDOVER 14:06 → HO.S3 17:00
PROVIDERS: Physician Assistant; Admitting Provider Internal Medicine; Emergency Provider Emergency Medicine; PCP Family Medicine; Visit Provider Internal Medicine
DX: J44.0 Chronic obstructive pulmonary disease with (acute) lower respiratory infection (principal); R40.20 Unspecified coma; J96.21 Acute and chronic respiratory failure with hypoxia; R57.9 Shock, unspecified; J18.0 Bronchopneumonia, unspecified organism; E87.1 Hypo-osmolality and hyponatremia; E87.2 Acidosis; K74.60 Unspecified cirrhosis of liver; J96.22 Acute and chronic respiratory failure with hypercapnia; Z99.81 Dependence on supplemental oxygen; J44.1 Chronic obstructive pulmonary disease with (acute) exacerbation; Z20.822 Contact with and (suspected) exposure to COVID-19; Z79.51 Long term (current) use of inhaled steroids; Z79.52 Long term (current) use of systemic steroids; Z79.891 Long term (current) use of opiate analgesic; Z79.899 Other long term (current) drug therapy; Z66 Do not resuscitate
CPT/HCPCS: 0241U; 36415; 71045; 74018; 80048; 80053; 82803; 82947; 83605; 83690; 83880; 84484; 85007; 85025; 85027; 85610; 85730; 87040; 87077; 87186; 87205; 93005; 94640; 94644; 94660; 94799; 99285; J0456; J0696; J1650; J1940; J2270; J2920; J2930; J3475